=== PATIENT | male | born 1995 | race Caucasian/White ===

== ENCOUNTER 2021-01-30 14:04 | Emergency (ER) | payer MEDICAID ==
--- NOTE | 2021-01-30 14:44 | EDM.PDOC ---
ED HPI GENERAL MEDICAL PROBLEM - General Chief Complaint: Laceration Stated Complaint: CUT RT RING FINGER Time Seen by Provider: 01/30/21 14:43 Source of Information: Reports: Patient History Limitations: Reports: No Limitations - History of Present Illness INITIAL COMMENTS - FREE TEXT/NARRATIVE: Anthony is a 25 year old male whom present to ER for a right finger finger finger laceration at level of PIP joint. 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 Last tetanus shot in high school per patient, will be ordered and updated. - Related Data Allergies Allergy/AdvReac Type Severity Reaction Status Date / Time No Known Allergies Allergy Verified 01/30/21 14:40 Home Meds: Home Meds cephALEXin [Keflex] 500 mg PO BID 5 Days #10 cap 01/30/21 [Rx] Past Medical History - Past Health History Medical/Surgical History: Denies Medical/Surgical History Social & Family History - Tobacco Use Tobacco Use Status *Q: Never Tobacco User ED ROS GENERAL - Review of Systems Review Of Systems: Comprehensive ROS is negative, except as noted in HPI. ED EXAM, SKIN/RASH Exam: See Below Exam Limited By: No Limitations General Appearance: Alert, WD/WN, No Apparent Distress Eye Exam: Bilateral Eye: Normal Inspection Ears: Hearing Grossly Normal Throat/Mouth: Normal Voice, No Airway Compromise Respiratory/Chest: No Respiratory Distress Cardiovascular: Normal Peripheral Pulses, Regular Rate, Rhythm Extremities: Normal Inspection, Normal Range of Motion Neurological: Alert, Oriented, CN II-XII Intact, Normal Cognition, Normal Gait Psychiatric: Normal Affect, Normal Mood Skin: Warm, Dry, Intact Location, Skin: Upper Extremity, Right (Laceration of right finger finger extensor surface at level of PIP joint. Depth of wound exam completed in full ROM with superfical laceration of joint capsule noted. ) ED SKIN PROCEDURES - Laceration/Wound Repair Right Midline Proximal Digit - 4th (Ring) Appearance: Superficial, Subcutaneous, Linear, Other (superficial laceration (defect) joint capsule ) Distal NVT: Neuro & Vascular Intact Anesthetic Type: Digital Local Anesthesia - Lidocaine (Xylocaine): 1% with EPI Local Anesthetic Volume: 5cc Skin Prep: Chlorhexidine (Hibiciens), Saline Saline Irrigation (cc's): 150 Exploration/Debridement/Repair: Wound Explored, In a Bloodless Field, Explored to Base, No Foreign Material Found, Wound Margins Revised (surgical debirdement of non-viable margin) Closed with: Sutures Lac/Wound length In cm: 1.7 Suture Size: 5-0 # of Sutures: 3 Suture Type: Nylon Suture Size: 5-0 Drain Placement: No Sterile Dressing Applied: Provider Tetanus Status Addressed: Yes Course - Vital Signs Last Recorded V/S: Last Vital Signs Temp 36.2 C 01/30/21 14:44 Pulse 64 01/30/21 14:44 Resp 14 01/30/21 14:44 BP 117/73 01/30/21 14:44 Pulse Ox 98 01/30/21 14:44 Departure - Departure Time of Disposition: 15:47 Disposition: Home, Self-Care 01 Clinical Impression: Laceration of finger, Tetanus toxoid vaccination administered at current visit - Discharge Information Prescriptions: cephALEXin [Keflex] 500 mg PO BID 5 Days #10 cap Instructions: Laceration Care, Adult Referrals: PCP,None [Primary Care Provider] - Forms: ED Department Discharge Additional Instructions: 1. KEEP LACERATION DRY AND CLEAN X 48 HOURS 2. AFTER 48 hours CLEANSE WOUND DAILY AND APPLY TOPICAL ANTIBIOTIC OINTMENT. 3. FOLLOW WOUND CARE INFORMATION GIVEN. 4. FOLLOW UP IN CLINIC IN 7-10 DAYS FOR RECHECK AND POSSIBLE SUTURE REMOVAL. 5. Tylenol or Ibuprofen for pain and swelling. 6. Return for repeat evaluation if increase, changes, new or worsen symptoms. DISCHARGE INSTRUCTIONS ARE INTENDED A COMPLEMENT TO AND NOT A REPLACEMENT FOR THE VERBAL INSTRUCTIONS THAT I HAVE PROVIDED YOU TODAY. AFTER GOING OVER THE PLAN OF CARE AND PROVIDING YOU WITH THE VERBAL INSTRUCTIONS AT DISCHARGE YOU HAVE HAD THE OPPORTUNITY TO ASK FURTHER QUESTIONS AND TO CLARIFY UNCERTAINTIES. THANK YOU FOR ALLOWING US TO ASSIST WITH YOUR MEDICAL CONCERNS AND NEEDS. Discharge Instructions Laceration (Cut) You were seen today for a laceration (cut). Your provider examined your laceration for any problems such a buried foreign body (like glass, a splinter, or gravel), or injury to blood vessels, tendons, and nerves. Your provider may have also rinsed and/or scrubbed your laceration to help prevent an infection. It may not be possible to find all problems with your laceration on the first visit; occasionally foreign bodies or a tendon injury can go undetected. Your laceration may have been closed in one of several ways: No closure: many wounds will heal just fine without closure. Stitches: regular stitches that require removal. Sarah: skin sarah are often used in the scalp/head. Wound adhesive (glue): skin glue can be used for certain lacerations and d oesnt require removal. Wound strips (aka Butterfly bandages or steri-strips): these are bandages that help to close a wound. Absorbable stitches: dissolving stitches that go away on their own and usually dont require removal. A small percentage of wounds will develop an infection regardless of how well the wound is cared for. Antibiotics are generally not indicated to prevent an infection so are only given for a small number of high-risk wounds. Some lacerations are too high risk to close, and are left open to heal because closure can increase the likelihood that an infection will develop. Remember that all lacerations, no matter how expertly repaired, will cause scarring. We consider many factors, techniques, and materials, in our efforts to provide the best possible cosmetic outcome. Generally, every Emergency Department visit should have a follow-up clinic visit with either a primary or a specialty clinic/provider. Please follow-up as instructed by your emergency provider today. Return to the Emergency Department right away if: You have more redness, swelling, pain, drainage (pus), a bad smell, or red streaking from your laceration as these symptoms could indicate an infection. You have a fever of 100.4F or more. You have bleeding that you cannot stop at home. If your cut starts to bleed, hold pressure on the bleeding area with a clean cloth or put pressure over the bandage. If the bleeding does not stop after using constant pressure for 30 minutes, you should return to the Emergency Department for further treatment. An area past the laceration is cool, pale, or blue compared with the other side, or has a slower return of color when squeezed. Your dressing seems too tight or starts to get uncomfortable or painful. For children, signs of a problem might be irritability or restlessness. You have loss of normal function or use of an area, such as being unable to straighten or bend a finger normally. You have a numb area past the laceration. Return to the Emergency Department or see your regular provider if: The laceration starts to come open. You have something coming out of the cut or a feeling that there is something in the laceration. Your wound will not heal, or keeps breaking open. There can always be glass, wood, dirt or other things in any wound. They will not always show up, even on x-rays. If a wound does not heal, this may be why, and it is important to follow-up with your regular provider. Home Care: Take your dressing off in 12-24 hours, or as instructed by your provider, to check your laceration. Remove the dressing sooner if it seems too tight or painful, or if it is getting numb, tingly, or pale past the dressing. Gently wash your laceration 1-2 times daily with clean water and mild soap. It is okay to shower or run clean water over the laceration, but do not let the laceration soak in water (no swimming). If your laceration was closed with wound adhesive or strips: pat it dry and leave it open to the air. For all other repairs: after you wash your laceration, or at least 2 times a day, apply antibiotic ointment (such as Neosporin or Bacitracin) to the laceration, then cover it with a Band-Aid or gauze. Keep the laceration clean. Wear gloves or other protective clothing if you are around dirt. Follow-up for removal: If your wound was closed with sarah or regular stitches, they need to be removed according to the instructions and timeline specified by your provider today. If your wound was closed with absorbable (dissolving) sutures, they should fall out, dissolve, or not be visible in about one week. If they are still visible, then they should be removed according to the instructions and timeline specified by your provider today. Scars: To help minimize scarring: Wear sunscreen over the healed laceration when out in the sun. Massage the area regularly once healed. You may apply Vitamin E to the healed wound. Wait. Scars improve in appearance over months and years. If you were given a prescription for medicine here today, be sure toread all of the information (including the package insert) that comes with your prescription. This will include important information about the medicine, its side effects, and any warnings that you need to know about. The pharmacist who fills the prescription can provide more information and answer questions you may have about the medicine. If you have questions or concerns that the pharmacist cannot address, please call or return to the Emergency Department. Remember that you can always come back to the Emergency Department if you are not able to see your regular provider in the amount of time listed above, if you get any new symptoms, or if there is anything that worries you. TETANUS (LOCKJAW) IMMUNIZATION GENERAL INFORMATION: Tetanus is an acute infectious disease which produces painful tonic spasms of some voluntary muscles. Often the first noticeable sign is stiffness of the jaw (lockjaw). Tetanus shots are indicated for active immunization/protection of children over six years of age and adults. The basic immunization course consists of two doses/injections given at intervals of 4-6 weeks, and followed by a third dose/injection 6-12 months later. The third dose must be given to consider immunization/lobsterman protection completed. routine booster dose/injection should be given in ten year intervals throughout life to maintain immunity. GOAL:To prevent tetanus from occurring. TREATMENT/SPECIAL INSTRUCTIONS: 1. r clean minor wounds, a tetanus booster shot is necessary if ten years have elapsed since your last booster. For all other wounds, a booster shot is needed if it has been five or more years since your last booster. 2. A small area of redness and firmness at the site of the Injection (shot) is common, and may last for a few days. 3. If your arm feels stiff and sore, exercise it. You may also apply cold to the injection area for relief of minor discomfort. 4. It is important to keep a record of the date on which you received your Tetanus booster. Sepsis Event Note (ED) - Focused Exam Vital Signs: Vital Signs Temp Pulse Resp BP Pulse Ox 01/30/21 14:44 36.2 C 64 14 117/73 98
[2021-01-30 14:45] VITALS: BP 117/73; PULSE 64
[2021-01-30] MEDS ORDERED: Diphtheria,Pertussis(Acell),Tetanus Vaccine 0.5 ML Syringe IM ONE (15:32)
[2021-01-30] MEDS ORDERED: Lidocaine 1% with EPINEPHrine 1:100,000 50 ML MDV INJECT ONE (15:39)
[2021-01-30] MEDS ORDERED: Bacitracin Oint 1 GM U/D Packet TOP ONE (15:39)
== END 2021-01-30 15:56 | disposition home or self-care (01) ==
LOC: JP.ED 14:04
DX: S61.214A Laceration without foreign body of right ring finger without damage to nail, initial encounter (principal); Z23 Encounter for immunization; W26.8XXA Contact with other sharp object(s), not elsewhere classified, initial encounter; Y99.0 Civilian activity done for income or pay
CPT/HCPCS: 12001; 90471; 90715; 99282-25

== ENCOUNTER 2024-03-09 08:59 | Emergency (ER) | payer OTHER, MEDICAID ==
[2024-03-09 09:15] VITALS: BP 127/82; PULSE 62
[2024-03-09] MEDS ORDERED: HYDROmorphone 1 MG/ML Syringe IM ONE (11:24)
[2024-03-09] MEDS: Lidocaine 1% 5 ML VIAL INJECT ONE (11:32)
== END 2024-03-09 12:03 | disposition home or self-care (01) ==
LOC: JP.ED 08:59
DX: S60.552A Superficial foreign body of left hand, initial encounter (principal); X58.XXXA Exposure to other specified factors, initial encounter
CPT/HCPCS: 73130-26-LT; 73130-LT; 99283